=== PATIENT | male | born 1990 | race Caucasian/White ===

== ENCOUNTER → 2017-01-07 | Day surgery (SDC) | payer BC ==
[~2017-01-07] VITALS: Ht 172.7 cm; Wt 88.5 kg
[~2017-01-07] MED LIST: ATROPINE SULFATE 0.1 MG/ML 5ML SYR IV PRN; BELLADONNA/OPIUM SUPP 60 MG SUPP PR ONE; CETI5TAB5 PO; CIPROFLOXACIN 500 MG TAB PO SCH; EPP3/2 IM; EpHEDrine SULFATE INJ 50 MG/ML AMP IV PRN; FENTANYL CITRATE INJ 50 MCG/1 ML 2 ML VIAL ONE; HYDR-4079 PO; KETOROLAC TROMETHAMINE 30 MG/ML VIAL ONE; LACTATED RINGER'S 1000ML 1,000 ML IV SCH; LIDOCAINE HCL 2% 2 ML VIAL (20MG/ML) ONE; MIDAZOLAM HCL 1 MG/ML 2ML VIAL ONE; NURSING VERBAL MED ORDER ONE; NXM/40 PO; OXYC-57 PO; PHEN-775 PO; PRLSR20 PO; PROPOFOL IV EMULSION 10 MG/ML 20 ML VIAL IV ONE; RANI150T3 PO; TAMS0.4C38 PO
[2017-01-07 15:42] VITALS: BP 129/80; PULSE 84; TEMP 36.3; O2SAT 98; Ht 172.7 cm; Wt 88.5 kg
--- NOTE | 2017-01-07 16:32 | History & Physical Bridge Note ---
H&P Re-Evaluation Bridge Note: I have examined the patient, reviewed the History & Physical and in the interval since the performance of the History & Physical I have noted the following changes of clinical significance: he had return of severe colic and so today we plan a cysto with stent on left to control pain until his eswl surgery next week.
[2017-01-07 17:00] VITALS: BP 114/72; O2SAT 98
--- NOTE | 2017-01-07 17:02 | [facility] Operative Report ---
Operative Report Operative Date Jan 07, 2017. Pre-Operative Diagnosis left ureteral stone with hydronephrosis and acute renal colic Post-Operative Diagnosis same Procedure(s) Performed cysto left stent Surgeon chandan Table Cut Off Saw Operator Surgeon(s) none Estimated Blood Loss 0mL Findings radio-opaque left upper ureteral stone L2 level Fluids 300mL Specimens none Drains 5 fr 24 centimeter double J stent Anesthesia iv sedation Complication(s) None Disposition Recovery Room / PACU Indications acute return of severe left renla colic with an obstructing 6mm left upper ureteral stone. We plan stent. Description of Procedure Patient was sedated and placed in lithotomy position. His genitals were prepped and draped in sterile fashion. Time out held with team. I placed a 18 fr flexible cystoscope to bladder. The urethra is unremarkable. The prostate is small. The UOs are normal location small round shape. I placed a road runner wire up left ureter and had light resistance at stone. I then placed a 24 centimeter 5 Fr double J stent with a lot of resistance at the radio-opaque stone. Stent was positioned by fluoro. I concluded case. I placed a belladonna and opium suppository for post-op pain. He transferred to recovery under my escort, in stable condition. Plan: Home today Pyridium for dysuria x 3 days flomax daily oral pain meds as needed left eswl in 1-2 weeks ASA 2 clean contaminated case 30 seconds fluoro cipro antibiotic aitchbone breaker I attest to the content of the Intraoperative Record and any orders documented therein. Any exceptions are noted below.
--- NOTE | 2017-01-07 17:04 | Discharge Instructions ---
Discharge Instructions Admission Reason for Admission: Left Clark due to obstructing left ureteral stone Discharge Discharge Diagnosis / Problem: left obstructing ureteral stone Discharge Goals Goal(s): Decrease discomfort Activity Recommendations Activity Limitations: resume your previous activity Lifting Limitations: none Exercise/Sports Limitations: none May Resume Sexual Activity: when tolerated Shower/Bathe: no limitations Driving or Machine Use: resume 1 day after discharge . Instructions / Follow-Up Instructions / Follow-Up we will treat stone with eswl in 1-2 weeks Discharge Diet Recommended Diet: Regular Diet Fluid Restriction: None Pending Studies Studies pending at discharge: no Medical Emergencies . Who to Call and When: Medical Emergencies: If at any time you feel your situation is an emergency, please call 911 immediately. . Non-Emergent Contact Non-Emergency issues call your: Urologist ([phone]) Call Non-Emergent contact if: temperature is above 100.5 . . "Provider Documentation" section prepared by Yael Cat. VTE Core Measure Inpt VTE Proph given/why not?: SCD's [place] Drug Monitoring Program Search Results: patient reviewed within database, no issues identified
--- NOTE | 2017-01-07 17:13 | Anesthesiology Progress Note ---
Anesthesia Post Op Note Date & Time Jan 07, 2017 at 17:13 Vital Signs Pain Intensity: 0 Vital Signs Past 12 Hours Date Time Temp Pulse Resp B/P Pulse Ox O2 Delivery O2 Flow Rate FiO2 01/07/17 17:00 18 114/72 98 Room Air 01/07/17 15:42 36.3 84 20 129/80 98 Room Air Notes Mental Status: alert / awake / arousable, participated in evaluation Pt Amnestic to Procedure: Yes Nausea / Vomiting: adequately controlled Pain: adequately controlled Airway Patency, RR, SpO2: stable & adequate BP & HR: stable & adequate Hydration State: stable & adequate Anesthetic Complications: no major complications apparent
[2017-01-07 17:30] VITALS: BP 109/67; PULSE 76; TEMP 36.6; O2SAT 96
--- NOTE | 2017-01-07 18:09 | DIAGNOSTIC IMAGING REPORT ---
INTRAOPERATIVE RADIOGRAPHS CLINICAL HISTORY: Left ureteral stent placement. Fluoroscopy time: 31 seconds. FINDINGS: 3 spot fluoroscopic views from a left ureteral stent placement procedure are correlated with abdominal CT dated 09/28/2012. A calculus is identified projecting over the left proximal ureter. Images from ureteral stent placement are shown. IMPRESSION: Intraoperative images from left ureteral stent placement as above. Electronically signed by: Edwin Nuno M.D. 01/07/2017 6:08 PM Dictated Date/Time: 01/07/2017 6:06 PM
== END | disposition home or self-care (01) ==
LOC: C.ACU 15:19
PROVIDERS: ATTEND Urology
DX: N20.1 Calculus of ureter (principal); N04.9 Nephrotic syndrome with unspecified morphologic changes; N23 Unspecified renal colic

== ENCOUNTER → 2017-01-22 | Day surgery (SDC) | payer BC ==
[2017-01-14 11:53] VITALS: Ht 172.7 cm; Wt 88.6 kg
[~2017-01-22] VITALS: Ht 172.7 cm; Wt 88.6 kg
[~2017-01-22] MED LIST changes: -BELLADONNA/OPIUM SUPP 60 MG SUPP PR ONE; +CEFAZOLIN IV 2,000 MG/60 ML D5W IV ONE; +CIPROFLOXACIN 400MG / 200ML D5W IV SCH; +CIPROFLOXACIN 400MG / 200ML D5W ONE; -CIPROFLOXACIN 500 MG TAB PO SCH; +DEXAMETHASONE SOD INJ 4 MG/ML VIAL IV PRN; +DEXAMETHASONE SOD INJ 4 MG/ML VIAL ONE; -EPP3/2 IM; +FENTANYL CITRATE INJ 50 MCG/1 ML 2 ML VIAL IV PRN; +KETOROLAC TROMETHAMINE 30 MG/ML VIAL IV. PRN; +LABETALOL HCL IV 5 MG/ML 20ML IV PRN; +LIDOCAINE 2% 20 MG/ML 5ML SYR ONE; -LIDOCAINE HCL 2% 2 ML VIAL (20MG/ML) ONE; +METOCLOPRAMIDE HCL INJ 5 MG/ML 2 ML VIAL IV PRN; +MoRPHine SULFATE 10 MG/ML CARP/VIAL IV PRN; -NURSING VERBAL MED ORDER ONE; -NXM/40 PO; +ONDANSETRON INJ 2 MG/ML 2 ML VIAL IV PRN; +ONDANSETRON INJ 2 MG/ML 2 ML VIAL ONE; +PHENYLEPHRINE 100MCG/ML 5ML SYR IV PRN; -TAMS0.4C38 PO
--- NOTE | 2017-01-22 08:05 | History & Physical Bridge Note ---
H&P Re-Evaluation Bridge Note: I have examined the patient, reviewed the History & Physical and in the interval since the performance of the History & Physical I have noted the following changes of clinical significance: He had an urgent stent placement 2 weeks ago for severe left renal colic. He would like the stent removed at the end of his case today as it is causing him daily gross hematuria and bladder discomfort. We will add ancef construction site manager today
--- NOTE | 2017-01-22 09:42 | Discharge Instructions ---
Discharge Instructions Date of Service Jan 22, 2017. Admission Reason for Admission: Left Ureteral Stone With Annabella Discharge Discharge Diagnosis / Problem: left renal stone Discharge Goals Goal(s): Decrease discomfort, Improve disease control Activity Recommendations Activity Limitations: resume your previous activity Lifting Limitations: none Exercise/Sports Limitations: none May Resume Sexual Activity: when tolerated Shower/Bathe: no limitations Driving or Machine Use: resume 1 day after discharge . Instructions / Follow-Up Instructions / Follow-Up strain urine for a week to try to collect fragment. drink lots of fluids and lie on your right side to encourage left kidney stone to fall out of left kidney take ibuprofen for mild pain take percocet for severe pain return to ER for fever over 100f or uncontrolled pain of intractable vomiting Return to clinic in one month for new x-ray urine will be bloody Discharge Diet Recommended Diet: Regular Diet Procedures Procedures Performed: Left Extracorporeal Shock Wave Lithotripsy- Ureteral; cysto stent removal Pending Studies Studies pending at discharge: no Medical Emergencies . Who to Call and When: Medical Emergencies: If at any time you feel your situation is an emergency, please call 911 immediately. . Non-Emergent Contact Non-Emergency issues call your: Urologist ([phone]) Call Non-Emergent contact if: temperature is above 100.5, your pain is not controlled . . "Provider Documentation" section prepared by Yael Cat. VTE Core Measure Inpt VTE Proph given/why not?: [place]CD's [place] Drug Monitoring [place] Search Results: patient reviewed within database, no issues identified
--- NOTE | 2017-01-22 09:43 | [facility] Operative Report ---
Operative Report Operative Date Jan 22, 2017. Pre-Operative Diagnosis Left Ureteral Calculus Post-Operative Diagnosis left lower pole stone Procedure(s) Performed Left shock wave lithotripsy , cystoscopy with left stent removal Surgeon Dr. Cat Pulp Drier Surgeon(s) None Estimated Blood Loss 2mL Findings No stone seen in left ureter along course of ureter. 5mm stone seen in left lower pole. Bloody urine on cystoscopy. Fluids 1100mL Specimens None Drains none Anesthesia LMA Complication(s) None Disposition Recovery Room / PACU Indications obstructing left upper ureteral stone 5mm. Had terrible colic and was stented then today we plan to treat stone with ESWL. Description of Procedure Patient was placed supine on OR table and had LMA anesthesia. His left flank was placed against machine head. We used spot fluoro to look for stone in upper then mid and lower ureter and could not find it. Stone was finally found in lower pole left kidney. We performed left shock wave lithotripsy up to 2500 shocks observing a pause for 2 minutes at 200 shocks and gradually increasing power to 4. The stone fragmented well. Towards end of treatment his genitals were prepped with chlorhexidine and sterile drapes placed. I used an 18 fr flexible cystoscope to remove his left ureteral stent. The urethra was normal, the prostate small and the urine bloody. The stent was removed and found to be wholly intact. We then placed a 16 fr red rubber cath to empty his bladder. He tolerated procedure well and transferred to recovery room in stable condition. Plan; home today strain urine for a few days oral pain meds prn one month office visit and KUB asa 2 2 minutes 11 seconds fluoro clean contaminated case cipro abt given. I attest to the content of the Intraoperative Record and any orders documented therein. Any exceptions are noted below.
[2017-01-22 10:05] VITALS: TEMP 36.2
[2017-01-22 10:32] VITALS: BP 117/76; PULSE 72; O2SAT 97
--- NOTE | 2017-01-22 10:39 | Anesthesia Progress Nt - [facility] ---
Anesthesia Post Op Note Date & Time Jan 22, 2017 at 10:39 Vital Signs Pain Intensity: 0 Vital Signs Past 12 Hours Date Time Temp Pulse Resp B/P Pulse Ox O2 Delivery O2 Flow Rate FiO2 01/22/17 10:32 72 18 117/76 97 Room Air 01/22/17 10:05 36.2 67 18 116/76 99 Room Air 01/22/17 10:01 121/86 01/22/17 10:00 36.6 78 17 120/91 97 Room Air 01/22/17 09:59 67 17 01/22/17 09:59 66 17 100 01/22/17 09:58 76 16 01/22/17 09:58 74 16 99 01/22/17 09:56 120/91 01/22/17 09:53 78 19 99 01/22/17 09:53 85 19 01/22/17 09:51 118/77 01/22/17 09:48 83 15 01/22/17 09:48 79 15 100 01/22/17 09:46 110/75 01/22/17 09:43 71 13 01/22/17 09:43 72 13 100 01/22/17 09:41 117/76 01/22/17 09:38 37.2 81 12 129/75 100 Mask 6 01/22/17 09:38 78 14 01/22/17 09:38 79 14 129/75 100 01/22/17 07:18 36.5 89 16 125/81 95 Room Air Notes Mental Status: alert / awake / arousable, participated in evaluation Pt Amnestic to Procedure: Yes Nausea / Vomiting: adequately controlled Pain: adequately controlled Airway Patency, RR, SpO2: stable & adequate BP & HR: stable & adequate Hydration State: stable & adequate Anesthetic Complications: no major complications apparent
== END | disposition home or self-care (01) ==
LOC: X.SURG 06:48
PROVIDERS: ATTEND Urology
DX: N20.0 Calculus of kidney (principal); K21.9 Gastro-esophageal reflux disease without esophagitis; Z87.891 Personal history of nicotine dependence

== ENCOUNTER 2018-06-19 01:46 | Emergency (ER) | payer BC ==
[~2018-06-19] VITALS: Ht 172.7 cm; Wt 88.3 kg
[~2018-06-19 01:46] MED LIST changes: -ATROPINE SULFATE 0.1 MG/ML 5ML SYR IV PRN; -CEFAZOLIN IV 2,000 MG/60 ML D5W IV ONE; -CIPROFLOXACIN 400MG / 200ML D5W IV SCH; -CIPROFLOXACIN 400MG / 200ML D5W ONE; -DEXAMETHASONE SOD INJ 4 MG/ML VIAL IV PRN; -DEXAMETHASONE SOD INJ 4 MG/ML VIAL ONE; -EpHEDrine SULFATE INJ 50 MG/ML AMP IV PRN; -FENTANYL CITRATE INJ 50 MCG/1 ML 2 ML VIAL IV PRN; -FENTANYL CITRATE INJ 50 MCG/1 ML 2 ML VIAL ONE; -KETOROLAC TROMETHAMINE 30 MG/ML VIAL IV. PRN; -KETOROLAC TROMETHAMINE 30 MG/ML VIAL ONE; -LABETALOL HCL IV 5 MG/ML 20ML IV PRN; -LACTATED RINGER'S 1000ML 1,000 ML IV SCH; -LIDOCAINE 2% 20 MG/ML 5ML SYR ONE; -METOCLOPRAMIDE HCL INJ 5 MG/ML 2 ML VIAL IV PRN; -MIDAZOLAM HCL 1 MG/ML 2ML VIAL ONE; -MoRPHine SULFATE 10 MG/ML CARP/VIAL IV PRN; -ONDANSETRON INJ 2 MG/ML 2 ML VIAL IV PRN; -ONDANSETRON INJ 2 MG/ML 2 ML VIAL ONE; -OXYC-57 PO; -PHEN-775 PO; -PHENYLEPHRINE 100MCG/ML 5ML SYR IV PRN; -PROPOFOL IV EMULSION 10 MG/ML 20 ML VIAL IV ONE
[2018-06-19 01:50] VITALS: TEMP 36.7; Ht 172.7 cm; Wt 88.3 kg
[2018-06-19] MEDS ORDERED: KETOROLAC TROMETHAMINE 30 MG/ML VIAL IV STA (02:00)
[2018-06-19] MEDS ORDERED: SODIUM CHLORIDE 0.9% 1000ML 1,000 ML IV STA (02:00)
[2018-06-19] MEDS ORDERED: TAMSULOSIN HCL 0.4 MG CAP PO ONE (02:00)
[2018-06-19] MEDS ORDERED: ONDANSETRON INJ 2 MG/ML 2 ML VIAL IV STA (02:00)
[2018-06-19 02:23] LABS: BASO % 0.2 %; BASO ABS # 0.02 K/uL (0-0.2); EOS % 1.3 %; EOS ABS # 0.12 K/uL (0-0.5); HEMATOCRIT 42.6 % (42-52); HEMOGLOBIN 14.9 g/dL (14.0-18.0); IG# 0.03 K/uL (0.00-0.02); LYMPH % 8.7 %; LYMPH ABS # 0.82 K/uL (1.2-3.4); MEAN CELL VOLUME 91.4 fL (80-100); MEAN PLATELET VOLUME 9.6 fL (7.4-10.4); MONO % 6.3 %; MONO ABS # 0.59 K/uL (0.11-0.59); NEUT % 83.2 %; NEUT ABS # 7.85 K/uL (1.4-6.5); PLATELET COUNT 253 K/uL (130-400); RED CELL DISTRIBUTION WIDTH CV 12.8 % (11.5-14.5); RED CELL DISTRIBUTION WIDTH SD 42.4 fL (36.4-46.3); WHITE BLOOD COUNT 9.43 K/uL (4.8-10.8)
[2018-06-19 02:50] LABS: ALBUMIN 3.9 gm/dl (3.4-5.0); CALCIUM 8.2 mg/dl (8.5-10.1); CREATININE 0.97 mg/dl (0.60-1.40); POTASSIUM 3.7 mmol/L (3.5-5.1); TOTAL PROTEIN 7.6 gm/dl (6.4-8.2)
[2018-06-19] MEDS ORDERED: TAMS0.4C38 PO ×2 (03:25→12:50)
[2018-06-19] MEDS ORDERED: OXYC-737 PO ×2 (03:25→11:19)
[2018-06-19] MEDS ORDERED: ONDANSETRON HOME PACK 4MG OD TAB PO ONE (03:30)
[2018-06-19] MEDS ORDERED: OXYCODONE IR HOME PACK PO ONE (03:30)
[2018-06-19 03:36] VITALS: BP 111/67; PULSE 79; O2SAT 99
--- NOTE | 2018-06-19 03:55 | EMERGENCY ROOM VISIT NOTE ---
History First contact with patient: 01:55 Chief Complaint: FLANK PAIN Stated Complaint: R-FLANK PAIN,NAUSEA,KIDNEY STONE History of Present Illness The patient is a 28 year old male who presents to the Emergency Room with complaints of sudden onset of right flank that radiates to his groin for the past few hours described as aching, ranging severity 5 out of 10. Patient took hydrocodone prior to arrival and feels better. He has had good success in the past with Flomax. Dr. Cat is his urologist. He has had lithotripsy and stents in the past. Patient complains of nausea and urinary frequency. Patient denies chest pain, dyspnea, fever, chills, cough, congestion, testicular pain, penile pain, injury. Review of Systems An 10 system review of systems was completed with positives and pertinent negatives listed in the HPI. Past Medical/Surgical History Kidney stones Social History Smoking Status: Former Smoker Occupation Status: employed Current/Historical Medications Scheduled Omeprazole (Prilosec), 20 MG PO DAILY Ranitidine Hcl (Zantac), 150 MG PO QAM Tamsulosin Hcl (Flomax), 0.4 MG PO DAILY Scheduled PRN Cetirizine Hcl (Zyrtec), 10 MG PO QAM PRN for ALLERGIES Oxycodone Immediate Rel Tab (Roxicodone Ir), 1-2 TAB PO Q4H PRN for Severe Pain Physical Exam Vital Signs Date Time Temp Pulse Resp B/P (MAP) Pulse Ox O2 Delivery O2 Flow Rate FiO2 06/19/18 03:36 79 111/67 99 06/19/18 02:06 Room Air 06/19/18 01:50 36.7 100 16 121/83 96 Room Air Physical Exam VITALS: Vitals are noted on the nurse's note and reviewed by myself. Vital signs stable. GENERAL: Pleasant male who appears in pain, in no acute distress, nondiaphoretic , well-developed well-nourished. SKIN: The skin was without rashes, erythema, edema, or bruising. There is no tenting of the skin. Capillary reflex less than 2 seconds. HEAD: Normocephalic atraumatic. EARS: External auditory canals clear EYES: Pupils equal round and reactive to light and accommodation. Conjunctivae without injection, sclerae without icterus. Extraocular movements intact. NOSE: Patent, turbinates without inflammation or discharge. MOUTH: Mucous membranes moist. Pharynx without erythema or exudate. Uvula midline. Airway patent. Tongue does not deviate. NECK: Supple without nuchal rigidity. No lymphadenopathy. No thyromegaly. Cervical spine is nontender. No JVD. HEART: Regular rate and rhythm without murmurs gallops or rubs. LUNGS: Clear to auscultation bilaterally without wheezes, rales or rhonchi. No retractions or accessory muscle use. ABDOMEN: Positive bowel sounds x 4. Normal tympanic percussion. Soft, nontender, without masses or organomegaly. Barrow sign negative. No guarding or rebound tenderness. No CVA tenderness MUSCULOSKELETAL: No muscle atrophy, erythema, or edema noted. NEURO: Patient was alert and oriented to person place and time. Normal sensation to light and sharp touch. No focal neurological deficits. Medical Decision & Procedures Laboratory Results 06/19/18 02:10 Red Blood Count 4.66, Mean Corpuscular Volume 91.4, Mean Corpuscular Hemoglobin 32.0, Mean Corpuscular Hemoglobin Concent 35.0, Mean Platelet Volume 9.6, Neutrophils (%) (Auto) 83.2, Lymphocytes (%) (Auto) 8.7, Monocytes (%) (Auto) 6.3, Eosinophils (%) (Auto) 1.3, Basophils (%) (Auto) 0.2, Neutrophils # (Auto) 7.85, Lymphocytes # (Auto) 0.82, Monocytes # (Auto) 0.59, Eosinophils # (Auto) 0.12, Basophils # (Auto) 0.02 06/19/18 02:10 Test 06/19/18 02:00 06/19/18 02:10 Urine Color DK YELLOW Urine Appearance CLEAR (CLEAR) Urine pH 7.5 (4.5-7.5) Urine Specific [place]ese 1.025 (1.000-1.030) Urine Protein NEG (NEG) Urine Glucose (UA) NEG (NEG) Urine Ketones NEG (NEG) Urine Occult Blood 1+ (NEG) Urine Nitrite NEG (NEG) Urine Bilirubin NEG (NEG) Urine Urobilinogen NEG (NEG) Urine Leukocyte Esterase NEG (NEG) Urine WBC (Auto) 1-5 /hpf (0-5) Urine RBC (Auto) 10-30 /hpf (0-4) Urine Hyaline Casts (Auto) 1-5 /lpf (0-5) Urine Epithelial Cells (Auto) 5-10 /lpf (0-5) Urine Bacteria (Auto) NEG (NEG) White Blood Count 9.43 K/uL (4.8-10.8) Red Blood Count 4.66 M/uL (4.7-6.1) Hemoglobin 14.9 g/dL (14.0-18.0) Hematocrit 42.6 % (42-52) Mean Corpuscular Volume 91.4 fL (80-100) Mean Corpuscular Hemoglobin 32.0 pg (25-34) Mean Corpuscular Hemoglobin Concent 35.0 g/dl (32-36) Platelet Count 253 K/uL (130-400) Mean Platelet Volume 9.6 fL (7.4-10.4) Neutrophils (%) (Auto) 83.2 % Lymphocytes (%) (Auto) 8.7 % Monocytes (%) (Auto) 6.3 % Eosinophils (%) (Auto) 1.3 % Basophils (%) (Auto) 0.2 % Neutrophils # (Auto) 7.85 K/uL (1.4-6.5) Lymphocytes # (Auto) 0.82 K/uL (1.2-3.4) Monocytes # (Auto) 0.59 K/uL (0.11-0.59) Eosinophils # (Auto) 0.12 K/uL (0-0.5) Basophils # (Auto) 0.02 K/uL (0-0.2) RDW Standard Deviation 42.4 fL (36.4-46.3) RDW Coefficient of Variation 12.8 % (11.5-14.5) Immature Granulocyte % (Auto) 0.3 % Immature Granulocyte # (Auto) 0.03 K/uL (0.00-0.02) Anion Gap 7.0 mmol/L (3-11) Est Creatinine Clear Calc Drug Dose 120.3 ml/min Estimated GFR () 120.9 Estimated GFR (Non- 104.3 BUN/Creatinine Ratio 9.1 (10-20) Calcium Level 8.2 mg/dl (8.5-10.1) Total Bilirubin 0.8 mg/dl (0.2-1) Direct Bilirubin mg/dl (0-0.2) Aspartate Amino Transf (AST/SGOT) 40 U/L (15-37) Alanine Aminotransferase (ALT/SGPT) 68 U/L (12-78) Alkaline Phosphatase 132 U/L (45-117) Total Protein 7.6 gm/dl (6.4-8.2) Albumin 3.9 gm/dl (3.4-5.0) Chemistry Specimen Hemolysis Medications Administered Medications (Trade) Dose Ordered Sig/Avery Route Start Time Stop Time Status Last Admin Dose Admin Tamsulosin HCl (Flomax Cap) 0.4 mg NOW ONCE PO 06/19/18 02:00 06/19/18 02:02 DC 06/19/18 02:13 0.4 MG Ketorolac Tromethamine (Toradol Inj) 10 mg NOW STAT IV 06/19/18 02:00 06/19/18 02:02 DC 06/19/18 02:12 10 MG Sodium Chloride 1,000 ml @ 999 mls/hr Q1H1M STAT IV 06/19/18 02:00 06/19/18 03:00 DC 06/19/18 02:12 999 MLS/HR Ondansetron HCl (Zofran Inj) 4 mg NOW STAT IV 06/19/18 02:00 06/19/18 02:02 DC 06/19/18 02:12 4 MG ED Course Prior records/ancillary studies reviewed. Triage Nursing notes reviewed. Additional history obtained from the family. The patient's history was concerning for right flank pain. Differential diagnosis: Etiologies such as renal colic, appendicitis, diverticulitis, mesenteric ischemia, aortic pathology, infections, inflammatory bowel disease, PUD, biliary pathology, UTI, as well as others were entertained. Physical examination findings: As above. ER treatment provided: Toradol, Flomax, IV fluids On reassessment the patient felt better. Diagnostic interpretation by me: The labs revealed stable H&H. Urinalysis revealed hematuria. There was no sign of UTI. Imaging studies: CT of the abdomen and pelvis was reviewed in the [employer] system and patient has known bilateral nephrolithiasis US RENAL: The kidneys are normal in size and in echogenicity bilaterally. No focal lesions. No evidence of renal calculi. The right renal pelvis measures 1.4 cm in diameter which may be a normal variant or mild pelviectasis. However, no calyceal dilatation suggesting significant hydronephrosis. The bladder is unremarkable. Bilateral ureteral jets noted. Further potential imaging should be based on clinical criteria and laboratory findings. Radiologist: Erickson Yañez MD It appears that the patient most likely has isolated renal colic from a right sided stone. Patient is a history of stones. He has a urologist. Symptoms are similar. He has had multiple scans in the past. Patient was advised to strain his urine and to take medications as directed to follow-up next week with his urologist or here in the ER sooner for fevers, severe pain, vomiting, worsening signs or symptoms or as needed. By the evaluation outlined above emergent etiologies such as appendicitis, diverticulitis, mesenteric ischemia, aortic pathology, infections, inflammatory bowel disease, PUD, biliary pathology , UTI, as well as others were deemed relatively unlikely. The pt informed about the findings as listed above. All questions were answered and pleased with the treatment. Return instructions were outlined and the patient was discharged in stable condition. Outpatient prescription management: Oxy IR 5mg 1-2 po Q4 hrs prn flomax Referral: The pt was referred back to his urologist for follow up care regarding their stone. or The patient was referred back to their primary care physician for follow-up in 2 to 3 days for a recheck of the current condition. Case reviewed with my attending The chart was completed utilizing [employer] Speech voice recognition software. Grammatical errors, random word insertions, pronoun errors, and incomplete sentences are an occassional consequence of this system due to software limitations, ambient noise, and hardware issues. Any formal questions or concerns about the content, text, or information contained within the body of this dictation should be directly addressed to the physician electrician's assistant for clarification. Medical Decision As above Medication Reconcilliation Current Medication List: was personally reviewed by me Blood Pressure Screening Patient's blood pressure: Normal blood pressure Impression Primary Impression: Right flank pain Additional Impression: Nephrolithiasis Departure Information Prescriptions Oxycodone Immediate Rel Tab (ROXICODONE IR) 5 Mg Tab 1-2 TAB PO Q4H Y for Severe Pain, #15 TAB initial course Prov: Marianna Tafoya PA-C 06/19/18 Tamsulosin Hcl (FLOMAX) 0.4 Mg Cap 0.4 MG PO DAILY for 14 Days, #14 CAP Prov: Marianna Tafoya PA-C 06/19/18 Referrals Raoul Ca M.D. (PCP) Patient Instructions [facility] Problem Qualifiers
--- NOTE | 2018-06-19 07:30 | DIAGNOSTIC IMAGING REPORT ---
RENAL ULTRASOUND CLINICAL HISTORY: Right flank pain. Possible stone. COMPARISON STUDY: CT of the abdomen and pelvis September 28, 2012. TECHNIQUE: Sonography of the kidneys and the urinary bladder was performed. FINDINGS: The right kidney measures 11.9 x 6.1 x 6.9 cm and the left measures 13.4 x 5.4 x 6.7 cm. There is mild dilatation of the right renal pelvis. There is no evidence for hydronephrosis. There is no left hydronephrosis. No calculi or masses are identified by sonography. Both ureteral jets were identified. IMPRESSION: Mild dilatation of the right renal pelvis without michele hydronephrosis. Electronically signed by: Sawyer Gonzalez M.D. 06/19/2018 7:29 AM Dictated Date/Time: 06/19/2018 7:27 AM
== END 2018-06-19 03:37 | disposition home or self-care (01) ==
LOC: C.EDB 01:47 → C.EDA 03:37
DX: N20.0 Calculus of kidney (principal); Z87.442 Personal history of urinary calculi; Z87.891 Personal history of nicotine dependence

== ENCOUNTER 2018-06-23 10:21 | Emergency (ER) | payer BC ==
[~2018-06-23] VITALS: Ht 172.7 cm; Wt 85.9 kg
[~2018-06-23 10:21] MED LIST changes: -HYDR-4079 PO; +OXYC-737 PO; +TAMS0.4C38 PO
[2018-06-23 10:24] VITALS: Ht 172.7 cm; Wt 85.9 kg
[2018-06-23] MEDS ORDERED: HYDROmorphone INJ 1 MG/ML SYR IV STA (10:31)
[2018-06-23] MEDS ORDERED: SODIUM CHLORIDE 0.9% 1000ML 1,000 ML IV STA (10:31)
[2018-06-23] MEDS ORDERED: ONDANSETRON INJ 2 MG/ML 2 ML VIAL IV STA (10:31)
[2018-06-23 10:42] LABS: BASO % 0.4 %; BASO ABS # 0.03 K/uL (0-0.2); EOS % 2.4 %; HEMATOCRIT 42.6 % (42-52); HEMOGLOBIN 15.1 g/dL (14.0-18.0); IG# 0.05 K/uL (0.00-0.02); LYMPH % 17.3 %; LYMPH ABS # 1.45 K/uL (1.2-3.4); MEAN CELL VOLUME 90.3 fL (80-100); MEAN CORPUSCULAR HGB CONC 35.4 g/dl (32-36); MEAN PLATELET VOLUME 9.2 fL (7.4-10.4); MONO ABS # 0.59 K/uL (0.11-0.59); NEUT % 72.3 %; NEUT ABS # 6.06 K/uL (1.4-6.5); PLATELET COUNT 292 K/uL (130-400); RED CELL DISTRIBUTION WIDTH CV 12.5 % (11.5-14.5); RED CELL DISTRIBUTION WIDTH SD 41.1 fL (36.4-46.3); WHITE BLOOD COUNT 8.38 K/uL (4.8-10.8)
[2018-06-23] MEDS ORDERED: MoRPHine SULFATE 10 MG/ML CARP/VIAL IV STA (10:59)
[2018-06-23 11:03] LABS: ALBUMIN 4.2 gm/dl (3.4-5.0); CREATININE 1.17 mg/dl (0.60-1.40); POTASSIUM 3.6 mmol/L (3.5-5.1); TOTAL PROTEIN 8.2 gm/dl (6.4-8.2)
--- NOTE | 2018-06-23 11:19 | DIAGNOSTIC IMAGING REPORT ---
KUB CLINICAL HISTORY: 28 years-old Male presenting with stone r flank . TECHNIQUE: Single supine view of the abdomen was obtained. COMPARISON: Ultrasound from 06/19/[address] from 2011. FINDINGS: Nonobstructive bowel gas pattern. No gross pneumoperitoneum. Left hemipelvic phlebolith noted. A calcification also projects over the right hemipelvis. This was previously suggested to be a bladder calculus and was present in 2012. No radiographic evidence of renal or ureteral calculi on the current exam. Osseous structures normal. IMPRESSION: 1. No radiographic evidence of renal or ureteral calculi. Electronically signed by: Juancarlos Mello M.D. 06/23/2018 11:17 AM Dictated Date/Time: 06/23/2018 11:14 AM
[2018-06-23] MEDS ORDERED: KETOROLAC TROMETHAMINE 30 MG/ML VIAL IV STA (12:23)
[2018-06-23 13:10] VITALS: O2SAT 93
[2018-06-23] MEDS ORDERED: ATROPINE SULFATE 0.1 MG/ML 5ML SYR IV PRN (13:45)
[2018-06-23] MEDS ORDERED: FENTANYL CITRATE INJ 50 MCG/1 ML 2 ML VIAL IV PRN (13:45)
[2018-06-23] MEDS ORDERED: ONDANSETRON INJ 2 MG/ML 2 ML VIAL IV PRN (13:45)
[2018-06-23] MEDS ORDERED: HYDROmorphone INJ 1 MG/ML SYR IV PRN (13:45)
[2018-06-23] MEDS ORDERED: EpHEDrine SULFATE INJ 50 MG/ML AMP IV PRN (13:45)
[2018-06-23] MEDS ORDERED: LABETALOL HCL IV 5 MG/ML 20ML IV PRN (13:45)
[2018-06-23] MEDS ORDERED: MEPERIDINE HCL 25 MG/ML CARP IV PRN (13:45)
--- NOTE | 2018-06-23 13:55 | History and Physical ---
History & Physical Date Jun 23, 2018. Chief Complaint right renal colic History of Present Illness The patient is a 28 year old male with complaints of severe right renal colic. He had a right renal stone which now seems to be at the right UVJ on KUB. He has been to ER twice. He has had nausea and emesis this am. He has not passed stone yet. He has no fever. Appetite is poor. Past Medical/Surgical History Medical Problems: (1) Kidney stone Additional History Hepatic Disease: No Endocrine Disorder: No Kidney Disease: Yes Hypertension: No Heart Disease: No Bleeding Tendencies: No Allergies Coded Allergies: Penicillins (Verified Allergy, Severe, ANAPHYLAXIS, 06/23/18) Home Medications Scheduled Omeprazole (Prilosec), 20 MG PO DAILY Ranitidine Hcl (Zantac), 150 MG PO QAM Scheduled PRN Cetirizine Hcl (Zyrtec), 10 MG PO QAM PRN for ALLERGIES Oxycodone Immediate Rel Tab (Roxicodone Ir), 1-2 TAB PO Q4H PRN for Severe Pain Physical Examination Skin: warm/dry Eyes: normal inspection Neck: no adenopathy Respiratory/Chest: lungs clear, normal breath sounds, no respiratory distress Cardiovascular: regular rate, rhythm Abdomen / GI: normal bowel sounds, non tender Extremities: normal inspection, normal range of motion, + pertinent finding ( no edema ) Diagnosis right ureteral stone renal colic ASA Classification: ASA Class II Plan of Treatment Plan to OR, cysto, right ureteroscopy laser litho basket stone extraction possible stent I described surgery and risks he signed consent cipro health and safety consultant knee [facility] home today
[2018-06-23] MEDS ORDERED: FENTANYL CITRATE INJ 50 MCG/1 ML 2 ML VIAL ONE (13:57)
[2018-06-23] MEDS ORDERED: MIDAZOLAM HCL 1 MG/ML 2ML VIAL ONE (13:57)
[2018-06-23] MEDS ORDERED: CIPROFLOXACIN 400MG / 200ML D5W IV SCH (14:00)
[2018-06-23] MEDS ORDERED: BELLADONNA/OPIUM SUPP 60 MG SUPP PR ONE ×2 (14:40→14:41)
[2018-06-23] MEDS ORDERED: PROPOFOL IV EMULSION 10 MG/ML 20 ML VIAL ONE (14:44)
[2018-06-23] MEDS ORDERED: ONDANSETRON INJ 2 MG/ML 2 ML VIAL ONE (14:44)
[2018-06-23] MEDS ORDERED: LIDOCAINE HCL 2% 2 ML VIAL (20MG/ML) ONE (14:44)
[2018-06-23] MEDS ORDERED: DEXAMETHASONE SOD INJ 4 MG/ML VIAL ONE (14:44)
--- NOTE | 2018-06-23 14:48 | [facility] Operative Report ---
Operative Report Operative Date Jun 23, 2018. Pre-Operative Diagnosis right ureteral stone with right renal colic Post-Operative Diagnosis right distal ureteral stone Procedure(s) Performed cystoscopy, right ureteroscopy, basket stone extraction Surgeon chandan Calender Tender Surgeon(s) none Estimated Blood Loss 1mL Findings radio-opaque right distal stone Fluids 400mL Specimens right ureteral stone Drains None Anesthesia Type General Complication(s) none Disposition yes Recovery Room / PACU Indications Patient with right renal colic and known 3mm right renal stone. U/S and KUB suggest the stone has moved to right distal ureter. He failed outpatient med expulsive therapy. We now plan ureteroscopy. Description of Procedure Patient was given general LMA and placed in lithotomy position. His genitals were prepped and draped in sterile fashion. Time out held with team. I placed a 21 fr rigid cystoscope to bladder. The meatus and fossa navicularis are tight to the scope. The remainder of urethra is unremarkable. The prostate is small. The bladder neck is a bit elevated. The UOs are in normal location and both are not effluxing possibly due to dehydration. I placed a road runner wire up right ureter and there is an increase of efflux from right and I do see a small radio-opaque stone about 3-4 centimeters up the right ureter. I placed a dual lumen catheter and it is slightly tight to the UVJ. I placed a stiff wire to the kidney. I placed a short semirigid ureteroscope over the road runner into the distal ureter. He has a small yellow stone in the distal ureter. I used a 1.9 fr zerotip basket to remove stone whole. I replaced the cystoscope and emptied bladder. I observed the right UO and it is effluxing regularly so I elected not to leave a stent. I left bladder empty and concluded case. I placed a belladonna and opium suppository for post-op pain. He transferred to recovery under my escort, in stable condition. 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 Any exceptions are noted below.
[2018-06-23] MEDS ORDERED: TAMS0.4C38 PO (14:53)
--- NOTE | 2018-06-23 14:58 | Discharge Instructions ---
Discharge Instructions Date of Service Jun 23, 2018. Admission Reason for Admission: Kidney Stone Discharge Discharge Diagnosis / Problem: right distal ureteral stone Discharge Goals Goal(s): Decrease discomfort, Improve function Activity Recommendations Activity Limitations: resume your previous activity Lifting Limitations: none Exercise/Sports Limitations: as tolerated May Resume Sexual Activity: when tolerated Shower/Bathe: no limitations Driving or Machine Use: resume 1 day after discharge . Instructions / Follow-Up Instructions / Follow-Up urine may be bloody for several days You will have urethral, bladder and right kidney pain for 2-3 days Use ibuprofen 600-800mg every 8 hours for the next 2 days then as needed. Take with food. Use tylenol 650mg every 4 hours for breakthrough pain. Use narcotic for severe pain. Keep total tylenol dose under 4000mg per 24 hours. Most narcotics have 325mg tylenol (acetaminophen) per tablet. If using narcotic often, take a laxative to avoid constipation. Current Hospital Diet Patient's current hospital diet: Discharge Diet Recommended Diet: Regular Diet Procedures Procedures Performed: cystoscopy, right ureteroscopy, basket stone extraction Pending Studies Studies pending at discharge: yes List of pending studies: stone analysis Medical Emergencies . Who to Call and When: Medical Emergencies: If at any time you feel your situation is an emergency, please call 911 immediately. . Non-Emergent Contact Non-Emergency issues call your: Urologist ([phone] ) Call Non-Emergent contact if: temperature is above 100.5, your pain is not controlled . . "Provider Documentation" section prepared by Yael Cat. .
--- NOTE | 2018-06-23 15:01 | DIAGNOSTIC IMAGING REPORT ---
KUB HISTORY: RT SIDE STONE REMOVAL FLUOROSCOPY TIME: 19 seconds. FINDINGS: 3 fluoroscopic spot images were submitted for review. Images demonstrate a guidewire within the right ureter placed in a retrograde fashion. IMPRESSION: Fluoroscopy provided for removal of a right renal stone. Electronically signed by: Marino Lee M.D. 06/23/2018 3:00 PM Dictated Date/Time: 06/23/2018 2:58 PM
[2018-06-23 15:30] VITALS: BP 111/73; PULSE 90; TEMP 36.5; O2SAT 94
[2018-06-23 15:58] VITALS: BP 111/73; PULSE 90; TEMP 36.5; O2SAT 94
[2018-06-23 16:00] VITALS: BP 134/84; PULSE 82; O2SAT 97
[2018-06-23 16:30] VITALS: BP 118/74; PULSE 109; O2SAT 96
--- NOTE | 2018-06-23 17:33 | EMERGENCY ROOM VISIT NOTE ---
History Report prepared by Rosaibyazmin: Kaylene Wiggins Under the Supervision of: Dr. Corky Brock D.O. First contact with patient: 10:26 Chief Complaint: KIDNEY STONE Stated Complaint: KIDNEY STONE History of Present Illness The patient is a 28 year old male who presents to the Emergency Room with complaints of worsening right sided flank pain. He states he has a known right sided kidney stone and is scheduled to have it removed tomorrow morning by Dr. Cat of [facility]. He developed pain 6 days ago, and rates his current discomfort as a 10/10 in severity. He has been taking Oxycodone with no relief and is diaphoretic on exam. The patient admits to a history of kidney stones and states his pain feels like his typical stone. He admits to dysuria. His last BM was last night and loose, which is not unusual for him. He has never undergone previous abdominal surgery. His girlfriend states she called Dr. Rodrigez's office this morning when his pain worsened, and they were told to come to the ED. 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 A total of 10 systems reviewed and were otherwise negative. Past Medical & Surgical Medical Problems: (1) Kidney stone Social History Smoking Status: Never Smoker Alcohol Use: occasionally Drug Use: none Marital Status: in relationship Housing Status: lives with family Occupation Status: employed Current/Historical Medications Scheduled Omeprazole (Prilosec), 20 MG PO DAILY Ranitidine Hcl (Zantac), 150 MG PO QAM Tamsulosin Hcl (Flomax), 0.4 MG PO DAILY Scheduled PRN Cetirizine Hcl (Zyrtec), 10 MG PO QAM PRN for ALLERGIES Oxycodone Immediate Rel Tab (Roxicodone Ir), 1-2 TAB PO Q4H PRN for Severe Pain Allergies Coded Allergies: Penicillins (Verified Allergy, Severe, ANAPHYLAXIS, 06/23/18) Latex (Unverified Allergy, Mild, HIVES, 06/23/18) Physical Exam Vital Signs Date Time Temp Pulse Resp B/P (MAP) Pulse Ox O2 Delivery O2 Flow Rate FiO2 8/16/18 16:30 109 18 118/74 96 Room Air 06/23/18 16:00 82 18 134/84 97 Room Air 06/23/18 15:30 36.5 90 18 111/73 94 Room Air 10 06/23/18 15:26 114/78 06/23/18 15:25 36.4 92 Room Air 06/23/18 15:24 75 14 92 06/23/18 15:24 75 14 06/23/18 15:21 113/71 06/23/18 15:19 85 13 95 06/23/18 15:19 86 13 06/23/18 15:18 86 14 06/23/18 15:18 87 14 92 06/23/18 15:16 114/73 06/23/18 15:13 88 14 92 06/23/18 15:13 89 14 06/23/18 15:11 131/73 06/23/18 15:08 93 15 98 06/23/18 15:08 94 15 06/23/18 15:07 111 14 06/23/18 15:07 112 14 99 06/23/18 15:06 111/81 06/23/18 15:02 88 14 06/23/18 15:02 87 14 96 06/23/18 15:01 84 12 06/23/18 15:01 84 12 115/74 96 06/23/18 14:56 87 11 110/74 96 06/23/18 14:56 88 11 06/23/18 14:52 114/72 06/23/18 14:51 36.8 91 12 114/72 95 Oxymask 10 06/23/18 13:10 88 20 134/78 93 Room Air 06/23/18 12:00 81 20 131/71 93 Room Air 06/23/18 11:16 82 06/23/18 10:24 36.6 101 18 125/74 97 Room Air Physical Exam GENERAL: Sitting up in bed, alert, diaphoretic and ill-appearing, holding right groin, well nourished, non-toxic EYE EXAM: normal conjunctiva. OROPHARYNX: no exudate, no erythema, lips, buccal mucosa, and tongue normal and mucous membranes are moist NECK: supple, no nuchal rigidity, no adenopathy, non-tender LUNGS: Clear to auscultation. Normal chest wall mechanics HEART: no murmurs, S1 normal and S2 normal ABDOMEN: abdomen soft, non-tender, normo-active bowel sounds, no masses, no rebound or guarding. BACK: Back is symmetrical on inspection and there is no deformity, no midline tenderness, no CVA tenderness. : Normal external circumcised genitalia SKIN: no rashes and no bruising UPPER EXTREMITIES: upper extremities are grossly normal. LOWER EXTREMITIES: No pitting edema. NEURO EXAM: Normal sensorium, cranial nerves II-XII grossly intact, normal speech, no gross weakness of arms, no gross weakness of legs. Gross sensation intact. Medical Decision & Procedures ER Provider Diagnostic Interpretation: Radiology results as stated below per my review and the radiologist's interpretation: KUB CLINICAL HISTORY: 28 years-old Male presenting with stone r flank . TECHNIQUE: Single supine view of the abdomen was obtained. COMPARISON: Ultrasound from 06/19/[address] from 2011. FINDINGS: Nonobstructive bowel gas pattern. No gross pneumoperitoneum. Left hemipelvic phlebolith noted. A calcification also projects over the right hemipelvis. This was previously suggested to be a bladder calculus and was present in 2011. No radiographic evidence of renal or ureteral calculi on the current exam. Osseous structures normal. IMPRESSION: 1. No radiographic evidence of renal or ureteral calculi. Electronically signed by: Juancarlos Mello M.D. 06/23/2018 11:17 AM Laboratory Results 06/23/18 10:35 Red Blood Count 4.72, Mean Corpuscular Volume 90.3, Mean Corpuscular Hemoglobin 32.0, Mean Corpuscular Hemoglobin Concent 35.4, Mean Platelet Volume 9.2, Neutrophils (%) (Auto) 72.3, Lymphocytes (%) (Auto) 17.3, Monocytes (%) (Auto) 7.0, Eosinophils (%) (Auto) 2.4, Basophils (%) (Auto) 0.4, Neutrophils # (Auto) 6.06, Lymphocytes # (Auto) 1.45, Monocytes # (Auto) 0.59, Eosinophils # (Auto) 0.20, Basophils # (Auto) 0.03 06/23/18 10:35 Test 06/23/18 00:00 06/23/18 10:35 06/23/18 13:13 White Blood Count 8.38 K/uL (4.8-10.8) Red Blood Count 4.72 M/uL (4.7-6.1) Hemoglobin 15.1 g/dL (14.0-18.0) Hematocrit 42.6 % (42-52) Mean Corpuscular Volume 90.3 fL (80-100) Mean Corpuscular Hemoglobin 32.0 pg (25-34) Mean Corpuscular Hemoglobin Concent 35.4 g/dl (32-36) Platelet Count 292 K/uL (130-400) Mean Platelet Volume 9.2 fL (7.4-10.4) Neutrophils (%) (Auto) 72.3 % Lymphocytes (%) (Auto) 17.3 % Monocytes (%) (Auto) 7.0 % Eosinophils (%) (Auto) 2.4 % Basophils (%) (Auto) 0.4 % Neutrophils # (Auto) 6.06 K/uL (1.4-6.5) Lymphocytes # (Auto) 1.45 K/uL (1.2-3.4) Monocytes # (Auto) 0.59 K/uL (0.11-0.59) Eosinophils # (Auto) 0.20 K/uL (0-0.5) Basophils # (Auto) 0.03 K/uL (0-0.2) RDW Standard Deviation 41.1 fL (36.4-46.3) RDW Coefficient of Variation 12.5 % (11.5-14.5) Immature Granulocyte % (Auto) 0.6 % Immature Granulocyte # (Auto) 0.05 K/uL (0.00-0.02) Anion Gap 7.0 mmol/L (3-11) Est Creatinine Clear Calc Drug Dose 98.4 ml/min Estimated GFR () 96.4 Estimated GFR (Non- 83.2 BUN/Creatinine Ratio 6.1 (10-20) Calcium Level 9.0 mg/dl (8.5-10.1) Total Bilirubin 0.6 mg/dl (0.2-1) Direct Bilirubin 0.2 mg/dl (0-0.2) Aspartate Amino Transf (AST/SGOT) 33 U/L (15-37) Alanine Aminotransferase (ALT/SGPT) 63 U/L (12-78) Alkaline Phosphatase 116 U/L (45-117) Total Protein 8.2 gm/dl (6.4-8.2) Albumin 4.2 gm/dl (3.4-5.0) Lipase 94 U/L (73-393) Urine Color DK YELLOW Urine Appearance CLEAR (CLEAR) Urine pH 6.5 (4.5-7.5) Urine Specific [place] 1.020 (1.000-1.030) Urine Protein TRACE (NEG) Urine Glucose (UA) NEG (NEG) Urine Ketones TRACE (NEG) Urine Occult Blood 2+ (NEG) Urine Nitrite NEG (NEG) Urine Bilirubin NEG (NEG) Urine Urobilinogen NEG (NEG) Urine Leukocyte Esterase TRACE (NEG) Urine WBC (Auto) 1-5 /hpf (0-5) Urine RBC (Auto) >30 /hpf (0-4) Urine Hyaline Casts (Auto) 1-5 /lpf (0-5) Urine Epithelial Cells (Auto) 10-20 /lpf (0-5) Urine Bacteria (Auto) NEG (NEG) Laboratory results per my review. Medications Administered Medications (Trade) Dose Ordered Sig/Avery Route Start Time Stop Time Status Last Admin Dose Admin Hydromorphone HCl (Dilaudid Inj) 1 mg NOW STAT IV 06/23/18 10:31 06/23/18 10:32 DC 06/23/18 10:39 1 MG Ondansetron HCl (Zofran Inj) 4 mg NOW STAT IV 06/23/18 10:31 06/23/18 10:32 DC 06/23/18 10:38 4 MG Sodium Chloride 1,000 ml @ 999 mls/hr Q1H1M STAT IV 06/23/18 10:31 06/23/18 11:31 DC 06/23/18 10:31 999 MLS/HR Morphine Sulfate (MoRPHine SULFATE INJ) 8 mg NOW STAT IV 06/23/18 10:59 06/23/18 11:00 DC 06/23/18 11:06 8 MG Ketorolac Tromethamine (Toradol Inj) 30 mg NOW STAT IV 06/23/18 12:23 06/23/18 12:24 DC 06/23/18 13:12 30 MG Ciprofloxacin/ Dextrose (Cipro / D5W) 400 mg PREOP@1400 IV 06/23/18 14:00 06/23/18 23:00 06/23/18 14:12 400 MG Belladonna/Opium (B & O Adult Supp) 60 mg ONE ONCE ID 06/23/18 14:41 06/23/18 14:42 DC 06/23/18 14:41 60 MG ED Course ED COURSE: Vital signs were reviewed and showed normal vital signs. The patients medical record was reviewed The above diagnostic studies were performed and reviewed. ED treatments and interventions as stated above. 1028: The patient was evaluated in room A3. A complete history and physical examination was performed. 1031: NSS 1000 ml @ 999 mls/hr IV, Zofran 4 mg IV, Dilaudid 1 mg IV. 1059: Morphine Sulfate 8 mg IV. 1210: I discussed the patients case with Dr. Cat, [facility]. The patient will be further evaluated. 1217: Upon reevaluation, the patient is feeling well and resting comfortably. I discussed my findings with the patient and he understands and agrees with the treatment plan. 1223: Toradol 30 mg IV. Based on the patients age, coexisting illnesses, exam and lab findings the decision to treat as an inpatient was made. The patient remained stable while under my care. The patient will be evaluated for further management. Medical Decision Differential diagnoses includes but is not limited to gastritis, peptic ulcer disease, GERD, gallbladder disease, pancreatitis, small bowel obstruction, acute coronary syndrome, pericarditis, ischemic bowel, irritable bowel disease, irritable bowel syndrome, appendicitis, diverticulitis, malignancy, hernia, urinary tract infection, torsion, perforation, trauma, infectious. Patient is a 28-year-old male who presents to ER for severe right-sided/flank pain. Patient was recently seen in the ER found to have hydronephrosis hematuria. CBC and BMP was unremarkable. KUB was unable to visualize the stone. UA without infection. Previous KUB as an outpatient did show a 3 mm stone at the UVJ. This is consistent with his symptoms. He was sent in by urology. Discussed with Dr. Cat over the phone and she will remove the stone taken to the OR. Patient was given multiple doses of IV and morphine, Dilaudid and Toradol. He rested comfortably was taken to the OR. Medication Reconcilliation Current Medication List: was personally reviewed by me Blood Pressure Screening Patient's blood pressure: Normal blood pressure Blood pressure disposition: Did not require urgent referral Consults Time Called: 1210 Consulting Physician: [facility] Returned Call: 1210 I discussed the patients case with [facility]. The patient will be further evaluated. Impression Primary Impression: Urolithiasis Additional Impression: Hydronephrosis Critical Care I have personally spent 35 minutes of critical care time in the direct management of this patient. This includes bedside care, interpretation of diagnostic studies, and testing, discussion with consultants, patient, and family members, and other required patient management activities. This 35 minutes is in excess of all separately billable procedures. Scribe Attestation The scribe's documentation has been prepared under my direction and personally reviewed by me in its entirety. I confirm that the note above accurately reflects all work, treatment, procedures, and medical decision making performed by me. Departure Information Dispostion Being Evaluated By Surgeon Prescriptions Tamsulosin Hcl (FLOMAX) 0.4 Mg Cap 0.4 MG PO DAILY, #7 CAP Prov: Yael Cat MD 06/23/18 Referrals Raoul Ca M.D. (PCP) Patient Instructions [facility] Problem Qualifiers Primary Impression: Urolithiasis Urinary calculus location: other lower urinary tract location Qualified Codes : N21.8 - Other lower urinary tract calculus Additional Impression: Hydronephrosis Hydronephrosis type: unspecified Qualified Codes: N13.30 - Unspecified hydronephrosis
== END 2018-06-23 16:50 | disposition home or self-care (01) ==
LOC: C.EDB 10:23 → C.EDA 16:50
DX: N20.1 Calculus of ureter (principal); Z88.0 Allergy status to penicillin; Z79.899 Other long term (current) drug therapy; Z91.040 Latex allergy status